=== PATIENT | male | born 1975 | race Caucasian/White ===

== ENCOUNTER 2024-08-05 12:01 | Inpatient (IN) | payer SELFPAY ==
[~2024-08-05] VITALS: Ht 172.7 cm; Wt 103.6 kg
[2024-08-05] MEDS: MORPHINE SULFATE 4 MG/ML INJ (FOR IV/IM USE) IV STA (12:16)
[2024-08-05 12:20] LABS: BASOPHILS % 0.7 % (0.0-2.0); EOSINOPHILS % 1.9 % (0.0-5.0); HEMATOCRIT. 49.2 % (42.0-52.0); HEMOGLOBIN. 17.2 g/dL (14.0-18.0); LYMPHOCYTES % 45.9 % (20.0-50.0); MEAN CORPUSCULAR HEMOGLOBIN 32.5 pg (28.0-32.0); MEAN CORPUSCULAR HGB CONC 34.8 g/dL (31.0-37.0); MEAN CORPUSCULAR VOLUME 93.4 fL (80.0-94.0); MONOCYTES % 9.5 % (2.0-8.0); PLATELET 228 x1000/uL (130-400); RED BLOOD CELL COUNT 5.27 mill/uL (4.7-6.1); RED CELL DISTRIBUTION WIDTH 13.2 % (11.6-14.6); WHITE BLOOD COUNT 7.2 x1000/uL (4.5-11.0)
[2024-08-05 12:33] LABS: CHLORIDE 107 mEq/L (98-107); POTASSIUM 3.5 mEq/L (3.5-5.1); SODIUM 139 mEq/L (136-145)
[2024-08-05 12:34] LABS: CALCIUM 9.7 mg/dL (8.7-10.4); CARBON DIOXIDE 23 mEq/L (21-32)
[2024-08-05 12:39] LABS: CREATININE 1.1 mg/dL (0.6-1.3); GLUCOSE 138 mg/dL (70-105); UREA NITROGEN BLOOD 14 mg/dL (9-23)
[2024-08-05 12:40] LABS: TROPONIN I HIGH SENSITIVITY 11 ng/L (3.0-53)
[2024-08-05] MEDS: MORPHINE SULFATE 4 MG/ML INJ (FOR IV/IM USE) IV ONE (13:24)
[2024-08-05] MEDS: HYDRALAZINE 20MG/ML VIAL IV ONE (14:06)
[2024-08-05] MEDS: IOHEXOL-350 100 ML BOTTLE ONE (14:34)
[2024-08-05] MEDS: HEPARIN 5000 UNITS/ML VIAL IV ONE (14:47)
[2024-08-05] MEDS ORDERED: HEPARIN 60 UNITS/KG BOLUS IV SCH (15:00)
[2024-08-05] MEDS: HEPARIN 5000 UNITS/ML VIAL IV SCH (15:00)
[2024-08-05] MEDS ORDERED: ASPIRIN 325MG EC TABLET PO SCH (15:00)
[2024-08-05] MEDS ORDERED: DOCUSATE SODIUM 100MG CAPSULE PO PRN (15:00)
[2024-08-05] MEDS ORDERED: HEPARIN 5000 UNITS/ML VIAL IV PRN ×2 (15:00)
[2024-08-05] MEDS ORDERED: ACETAMINOPHEN 325MG TABLET PO PRN (15:00)
[2024-08-05] MEDS ORDERED: IPRATROPIUM/ALBUTEROL 0.5-3(2.5)MG/3ML NEB HHN PRN (15:00)
[2024-08-05] MEDS ORDERED: MAGNESIUM/ALUMINUM HYDROXIDE/SIMETHICONE 30ML UDC PO PRN (15:00)
[2024-08-05] MEDS ORDERED: CLONIDINE 0.1MG TABLET PO PRN (15:00)
[2024-08-05] MEDS ORDERED: HEPARIN 25,000 UNITS PREMIX 250 ML IV PRN (15:00)
[2024-08-05] MEDS: HEPARIN 25,000 UNITS PREMIX 250 ML IV SCH (15:25)
[2024-08-05 15:27] LABS: TROPONIN I HIGH SENSITIVITY 133 ng/L (3.0-53)
[2024-08-05 15:56] VITALS: BP 138/66; PULSE 68; RESP 20; TEMP 36.8
[2024-08-05 16:00] VITALS: BP 138/66; PULSE 68; RESP 20; TEMP 36.7; O2SAT 96
[2024-08-05] MEDS ORDERED: DEXTROSE 50% WATER 50ML SYRINGE IV PRN (16:00)
[2024-08-05] MEDS ORDERED: METOPROLOL TARTRATE 5MG/5ML VIAL IV PRN (16:15)
[2024-08-05 16:21] LABS: PARTIAL THROMBOPLASTIN TIME 24.4 sec (23.4-31.0); PROTHROMBIN TIME 10.4 sec (9.6-11.0)
[2024-08-05] MEDS: ASPIRIN 325MG EC TABLET PO NR (16:46)
[2024-08-05] MEDS: BLOOD SUGAR DIAGNOSTIC STRIP TEST SCH (17:00)
[2024-08-05] MEDS: INSULIN LISPRO 100 UNITS/ML SUBCUT SCH (17:33)
[2024-08-05] MEDS: NITROGLYCERIN 0.4MG TABLET SL SL PRN (17:45)
[2024-08-05] MEDS ORDERED: ATROPINE SULFATE 1MG/10ML SYR IV PRN (19:00)
[2024-08-05 20:00] VITALS: BP 141/90; PULSE 50; RESP 18; TEMP 36.2; O2SAT 100
[2024-08-05] MEDS: ATORVASTATIN CALCIUM 40MG TABLET PO SCH (20:53)
[2024-08-05] MEDS ORDERED: HEPARIN BOLUS PRN aPTT <30 IV (21:00)
[2024-08-05] MEDS ORDERED: HEPARIN BOLUS PRN aPTT 30-44 IV (21:00)
[2024-08-05 22:40] VITALS: PULSE 77; RESP 24; O2SAT 97
[2024-08-06] VITALS (7 sets, daily range): BP systolic 120–140; BP diastolic 80–98; PULSE 49–63; RESP 19–26; TEMP 36.2–37.7; O2SAT 95–98
[2024-08-06 00:58] LABS: *AMPHETAMINES SCREEN URINE NEGATIVE (NEGATIVE); *BARBITURATES SCREEN URINE NEGATIVE (NEGATIVE); *BENZODIAZEPINES SCREEN URINE NEGATIVE (NEGATIVE); *COCAINE SCREEN URINE NEGATIVE (NEGATIVE)
[2024-08-06 00:59] LABS: CANNABINOID URINE SCREEN PRESUMPTIVE POSITIVE (NEGATIVE); ECSTASY MDMA SCREEN URINE NEGATIVE (NEGATIVE); METHADONE URINE SCREEN NEGATIVE (NEGATIVE); OPIATES URINE SCREEN PRESUMPTIVE POSITIVE (NEGATIVE); PHENCYCLIDINE URINE SCREEN NEGATIVE (NEGATIVE)
[2024-08-06 02:40] LABS: TROPONIN I HIGH SENSITIVITY 9195 ng/L (3.0-53)
[2024-08-06] MEDS: ACETAMINOPHEN 325MG TABLET PO PRN (05:16)
[2024-08-06 07:39] LABS: BASOPHILS % 0.3 % (0.0-2.0); EOSINOPHILS % 0.3 % (0.0-5.0); HEMATOCRIT. 46.8 % (42.0-52.0); HEMOGLOBIN. 16.2 g/dL (14.0-18.0); LYMPHOCYTES % 11.2 % (20.0-50.0); MEAN CORPUSCULAR HEMOGLOBIN 32.3 pg (28.0-32.0); MEAN CORPUSCULAR HGB CONC 34.7 g/dL (31.0-37.0); MEAN PLATELET VOLUME 8.8 fl (7.4-10.4); MONOCYTES % 9.3 % (2.0-8.0); NEUTROPHILS % 78.9 % (40.0-76.0); PLATELET 215 x1000/uL (130-400); RED BLOOD CELL COUNT 5.03 mill/uL (4.7-6.1); RED CELL DISTRIBUTION WIDTH 12.5 % (11.6-14.6); WHITE BLOOD COUNT 11.4 x1000/uL (4.5-11.0)
[2024-08-06 07:45] LABS: CHLORIDE 105 mEq/L (98-107); POTASSIUM 4.1 mEq/L (3.5-5.1); SODIUM 137 mEq/L (136-145)
[2024-08-06 07:46] LABS: CALCIUM 9.5 mg/dL (8.7-10.4); CARBON DIOXIDE 25 mEq/L (21-32)
[2024-08-06 07:51] LABS: CREATININE 0.9 mg/dL (0.6-1.3); GLUCOSE 131 mg/dL (70-105); UREA NITROGEN BLOOD 11 mg/dL (9-23)
[2024-08-06 07:54] LABS: THYROID STIMULATING HORMONE 0.97 uIU/mL (0.55-4.78)
[2024-08-06 08:23] LABS: TROPONIN I HIGH SENSITIVITY 12861 ng/L (3.0-53)
[2024-08-06] MEDS: PANTOPRAZOLE SODIUM 40 MG/VIAL IV SCH (09:57)
[2024-08-06] MEDS: ASPIRIN 81MG EC TABLET PO SCH (09:58)
[2024-08-06] MEDS: ISOSORBIDE MONONITRATE 30MG TABLET SR 24HR PO SCH (09:58)
[2024-08-06] MEDS: ENOXAPARIN 100MG/ML SYR SUBCUT SCH (10:00)
[2024-08-06] MEDS: ONDANSETRON HCL 4MG/2ML INJ IV PRN (12:30)
[2024-08-06] MEDS ORDERED: VERAPAMIL HCL 2.5 MG/1 ML 2ML VIAL IV ONE (15:36)
[2024-08-06] MEDS ORDERED: DIPHENHYDRAMINE 50MG/ML VIAL ONE (15:36)
[2024-08-06] MEDS ORDERED: LIDOCAINE HCL 1% 20ML VIAL ONE (15:36)
[2024-08-06] MEDS ORDERED: HEPARIN 1000 UNITS/ML 10ML ONE ×2 (15:36→16:47)
[2024-08-06] MEDS: ONDANSETRON HCL 4MG/2ML INJ IV NR (15:54)
[2024-08-06] MEDS: SODIUM CHLORIDE 0.9% 1,000 ML IV ONE (15:54)
[2024-08-06] MEDS: ACETAMINOPHEN 325MG TABLET PO NR (15:54)
[2024-08-06] MEDS ORDERED: FENTANYL CITRATE/PF 50MCG/ML 2ML VIAL ONE (16:19)
[2024-08-06] MEDS ORDERED: MIDAZOLAM HCL 2 MG/2 ML VIAL ONE (16:19)
[2024-08-06] MEDS ORDERED: IODIXANOL 320MG/ML 100 ML BOTTLE IV ONE (16:50)
[2024-08-06] MEDS ORDERED: CLOPIDOGREL 75MG TABLET ONE (17:26)
[2024-08-06] MEDS ORDERED: ASPIRIN 325MG EC TABLET PO ONE (17:26)
[2024-08-06] MEDS ORDERED: ACETAMINOPHEN 325MG TABLET PO PRN (18:00)
[2024-08-06] MEDS ORDERED: ATROPINE SULFATE 1MG/10ML SYR IV PRN (18:00)
[2024-08-07] VITALS: BP 101/68; PULSE 67; RESP 19; TEMP 36.7; O2SAT 97
[2024-08-07 04:00] VITALS: BP 120/88; PULSE 61; RESP 24; TEMP 36.8; O2SAT 97
[2024-08-07 08:00] VITALS: BP 115/80; PULSE 82; RESP 27; TEMP 36.7; O2SAT 97
[2024-08-07 09:14] LABS: BASOPHILS % 0.4 % (0.0-2.0); EOSINOPHILS % 0.3 % (0.0-5.0); HEMATOCRIT. 48.3 % (42.0-52.0); HEMOGLOBIN. 16.6 g/dL (14.0-18.0); LYMPHOCYTES % 14.9 % (20.0-50.0); MEAN CORPUSCULAR HEMOGLOBIN 31.9 pg (28.0-32.0); MEAN CORPUSCULAR HGB CONC 34.4 g/dL (31.0-37.0); MEAN CORPUSCULAR VOLUME 92.8 fL (80.0-94.0); MONOCYTES % 13.3 % (2.0-8.0); NEUTROPHILS % 71.1 % (40.0-76.0); PLATELET 207 x1000/uL (130-400); WHITE BLOOD COUNT 9.8 x1000/uL (4.5-11.0)
[2024-08-07 09:51] LABS: CHLORIDE 103 mEq/L (98-107); POTASSIUM 3.9 mEq/L (3.5-5.1); SODIUM 137 mEq/L (136-145)
[2024-08-07 09:52] LABS: CARBON DIOXIDE 25 mEq/L (21-32)
[2024-08-07 09:57] LABS: GLUCOSE 110 mg/dL (70-105); UREA NITROGEN BLOOD 12 mg/dL (9-23)
[2024-08-07 09:59] LABS: PHOSPHORUS 2.4 mg/dL (2.5-4.9)
[2024-08-07] MEDS: CLOPIDOGREL 75MG TABLET PO SCH (10:13)
[2024-08-07 12:25] VITALS: BP 122/72; PULSE 79; RESP 19; TEMP 36.6; O2SAT 96
[2024-08-07] MEDS ORDERED: CLOP-31 PO (12:42)
[2024-08-07] MEDS ORDERED: ATOR-2 MT (12:42)
[2024-08-07] MEDS ORDERED: ASPI-1406 PO (12:42)
[2024-08-07] MEDS ORDERED: LOSA25TA26 MT (12:42)
[2024-08-07 13:38] VITALS: BP 122/72; PULSE 84; TEMP 98.8; O2SAT 96
[2024-08-08] MEDS ORDERED: FAMOTIDINE 20MG/2ML VIAL IV SCH (09:00)
== END 2024-08-07 14:10 | disposition home or self-care (01) | DRG 174 ==
LOC: ER 12:28 → 8WST 13:41 → EDBEDREQ 13:45 → EDBEDREQTM 13:45 → 3WST 08-06 18:20
PROVIDERS: ADMIT Internal Medicine; ATTEND Internal Medicine
PROC: 027034Z Dilation of Coronary Artery, One Artery with Drug-eluting Intraluminal Device, Percutaneous Approach (ICD-10-PCS; principal; 2024-08-06)
PROC: B2111ZZ Fluoroscopy of Multiple Coronary Arteries using Low Osmolar Contrast (ICD-10-PCS; 2024-08-06)
PROC: B240ZZ3 Ultrasonography of Single Coronary Artery, Intravascular (ICD-10-PCS; 2024-08-06)
PROC: 4A023N7 Measurement of Cardiac Sampling and Pressure, Left Heart, Percutaneous Approach (ICD-10-PCS; 2024-08-06)
DX: I21.4 Non-ST elevation (NSTEMI) myocardial infarction (principal); K76.89 Other specified diseases of liver; E87.6 Hypokalemia; R73.9 Hyperglycemia, unspecified; F17.290 Nicotine dependence, other tobacco product, uncomplicated; I25.110 Atherosclerotic heart disease of native coronary artery with unstable angina pectoris; F12.90 Cannabis use, unspecified, uncomplicated; R03.0 Elevated blood-pressure reading, without diagnosis of hypertension
CPT/HCPCS: 36415; 71045; 71275; 74174; 76700; 80048; 80061; 80305; 82962; 83036; 83735; 83880; 84100; 84443; 84484; 85025; 85347; 92941; 92978; 93005; 93458; 94070; 94760; 99285; A4606; C1725; C1753; C1769; C1874; C1887; C1893; J1200; J1644; J1650; J2250; J2270; J2405; J2470; J3010; J3490; Q9967